=== PATIENT | female | born 2000 ===

== ENCOUNTER 2022-11-04 05:25 | Emergency (ER) | payer OTHER ==
[~2022-11-04] VITALS: Ht 165.1 cm; Wt 59.1 kg
[2022-11-04 06:50] LABS: STREP SCREEN NEGATIVE
[2022-11-04] MEDS ORDERED: TESSALON P100 MG/CAP PO (07:37)
[2022-11-04] MEDS ORDERED: AMOXICILLIN 8751 TAB PO (07:37)
[2022-11-04] MEDS ORDERED: ZOFRAN ODT4 MG PO (07:37)
[2022-11-04 07:59] VITALS: BP 116/74; PULSE 93; TEMP 98.2
== END 2022-11-04 07:59 | disposition home or self-care (01) ==
LOC: COL.ER 05:25
PROVIDERS: Emergency Medicine
DX: J32.9 Chronic sinusitis, unspecified (principal); H69.93 Unspecified Eustachian tube disorder, bilateral; J02.9 Acute pharyngitis, unspecified; R11.2 Nausea with vomiting, unspecified; R19.7 Diarrhea, unspecified; Z20.822 Contact with and (suspected) exposure to COVID-19
CPT/HCPCS: J1885

== ENCOUNTER 2022-11-07 01:49 | Emergency (ER) | payer OTHER ==
[~2022-11-07] VITALS: Ht 165.1 cm; Wt 56.8 kg
[~2022-11-07 01:49] MED LIST: AMOXICILLIN 8751 TAB PO; TESSALON P100 MG/CAP PO; ZOFRAN ODT4 MG PO
[2022-11-07 01:53] VITALS: TEMP 98.2
[2022-11-07 02:35] LABS: COLLECTION METHOD CLEAN CATCH
[2022-11-07 02:42] LABS: MUCOUS Present (NOT PRESENT); SQUAMOUS EPITHELIAL 0-2 /hpf (0-10); URINE APPEARANCE Clear (CLEAR/HAZY); URINE BACTERIA None Seen /hpf (NONE SEEN); URINE BLOOD 1+ (NEGATIVE); URINE COLOR Yellow (YELLOW); URINE GLUCOSE Negative (NEGATIVE); URINE KETONE Negative (NEGATIVE); URINE NITRATE Negative (NEGATIVE); URINE PROTEIN(semi-quant) 2+ (NEGATIVE); URINE RBC 0-2 /hpf (0-2); URINE UROBILINOGEN 0.2 E.U/dL (0.2-1.0)
[2022-11-07] MEDS ORDERED: MEDROL 4MG DOSPA4 MG PO (03:26)
[2022-11-07] MEDS ORDERED: NORCO 325 MG-51 TAB PO (03:26)
[2022-11-07 03:39] VITALS: BP 112/76; PULSE 98
== END 2022-11-07 03:40 | disposition home or self-care (01) ==
LOC: COL.ER 01:49
PROVIDERS: Family Medicine
DX: M54.50 Low back pain, unspecified (principal); G89.29 Other chronic pain; Z87.828 Personal history of other (healed) physical injury and trauma
CPT/HCPCS: J1170; J2270; J2405